=== PATIENT | male | born 1950 ===

== ENCOUNTER 2017-11-12 14:21 | Emergency (ER) | payer SELFPAY ==
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
[2017-11-12 16:02] VITALS: BP 135/82; PULSE 80; O2SAT 97
--- NOTE | 2017-11-12 20:21 | XRAY ---
Indication: Right occipital trauma following fall. Multiple contiguous axial images obtained through the head. Comparison: None. Normal appearing brain parenchyma, ventricles, and bony calvarium. Mild mucosal thickening of both ethmoid and right maxillary sinuses. Mastoid air cells are clear. Impression: No acute intracranial abnormalities. Incidental paranasal sinus disease. Comment: Preliminary interpretation was made by [facility]. No discrepancy. CTDI 51.07
--- NOTE | 2017-11-12 20:23 | XRAY ---
Indication: Pain following fall. Comparison: None 3 views of the left shoulder demonstrate mild AC degenerative arthropathy and mild spinal degenerative spondylosis. No other bony, articular, or soft tissue abnormalities.
== END 2017-11-12 16:09 | disposition home or self-care (01) ==
LOC: ED 14:21
DX: S00.03XA Contusion of scalp, initial encounter (principal); S40.012A Contusion of left shoulder, initial encounter; R51 Headache; M25.512 Pain in left shoulder; S01.111A Laceration without foreign body of right eyelid and periocular area, initial encounter; F10.129 Alcohol abuse with intoxication, unspecified; J32.0 Chronic maxillary sinusitis; H11.33 Conjunctival hemorrhage, bilateral; Y35.813A Legal intervention involving manhandling, suspect injured, initial encounter
CPT/HCPCS: 36000; 36415; 70450; 73030; 99284; G0481